=== PATIENT | male | born 1990 | race American Indian/Alaskan Native ===

== ENCOUNTER 2022-01-23 14:08 | Emergency (ER) | payer SELFPAY ==
[2022-01-23] MEDS ORDERED: dexAMETHasone 4 MG/ML VIAL IM ONE (14:41)
[2022-01-23] MEDS ORDERED: ACETAMINOPHEN 500 MG TAB PO ONE (14:41)
--- NOTE | 2022-01-23 14:41 | Emergency Department Report ---
ED Headache HPI - General Stated Complaint: PAIN ON SIDE OF FACE Time Seen by Provider: 01/23/22 14:37 Source: patient Exam Limitations: no limitations - History of Present Illness Timing/Duration: other (3d) Head Injury Location: frontal Recent Head Trauma: no recent headache/trauma Modifying Factors: worse with: cold therapy, exposure to light, immobilization, medication, movement, rest, other Associated Symptoms: denies symptoms, nasal congestion, nasal drainage, sinus infection. denies: confusion, fatigue, facial pain, fever/chills, flushing, loss of consciousness, nausea/vomiting, numbness in legs/feet, rash, seizures, stiff neck, vision changes, weakness Allergies/Adverse Reactions: Allergies No Known Allergies Allergy (Verified 01/23/22 14:38) Home Medications: Ambulatory Orders Amoxicillin [Trimox CAP] 500 mg PO BID #20 capsule 01/23/22 Cetirizine HCl [ZyrTEC] 10 mg PO DAILY #30 capsule 01/23/22 Fluticasone [Flonase] 1 spray NS QDAY #1 bottle 01/23/22 predniSONE [Deltasone] 20 mg PO DAILY #5 tablet 01/23/22 ED Review of Systems ROS: Stated complaint: PAIN ON SIDE OF FACE Other details as noted in HPI Comment: All other systems reviewed and negative ED Past Medical Hx - Past Medical History Previous Medical History?: No - Surgical History Past Surgical History?: No - Family History Family history: no significant - Social History Smoking Status: Never Smoker Substance Use Type: None - Medications Home Medications: Home Medications Medication Instructions Recorded Confirmed Last Taken Type Amoxicillin [Trimox CAP] 500 mg PO BID #20 capsule 01/23/22 Unknown Rx Cetirizine HCl [ZyrTEC] 10 mg PO DAILY #30 capsule 01/23/22 Unknown Rx Fluticasone [Flonase] 1 spray NS QDAY #1 bottle 01/23/22 Unknown Rx predniSONE [Deltasone] 20 mg PO DAILY #5 tablet 01/23/22 Unknown Rx ED Physical Exam - General Limitations: No Limitations General appearance: alert, in no apparent distress - Head Head exam: Present: atraumatic, normocephalic - Eye Eye exam: Present: normal appearance - ENT ENT exam: Present: mucous membranes moist - Expanded ENT Exam Expanded Ear exam: Present: normal external inspection Mouth exam: Present: normal external inspection Teeth exam: Present: normal inspection Throat exam: Positive: normal inspection, other (pain over b max/frontal sinus) - Neck Neck exam: Present: normal inspection - Respiratory Respiratory exam: Present: normal lung sounds bilaterally. Absent: respiratory distress - Cardiovascular Cardiovascular Exam: Present: regular rate, normal rhythm. Absent: systolic murmur, diastolic murmur, rubs, gallop - GI/Abdominal GI/Abdominal exam: Present: soft, normal bowel sounds - Rectal Rectal exam: Present: deferred - Extremities Exam Extremities exam: Present: normal inspection - Back Exam Back exam: Present: normal inspection - Neurological Exam Neurological exam: Present: alert, oriented X3 - Psychiatric Psychiatric exam: Present: normal affect, normal mood - Skin Skin exam: Present: warm, dry, intact, normal color. Absent: rash ED Medical Decision Making - Medical Decision Making Vital Signs 01/23/22 14:36 Temperature 99.7 F H Pulse Rate 50 L Respiratory 14 Rate Blood Pressure 128/71 O2 Sat by Pulse 99 Oximetry - Differential Diagnosis uri Critical care attestation.: If time is entered above; I have spent that time in minutes in the direct care of this critically ill patient, excluding procedure time. ED Disposition Clinical Impression: Sinusitis Disposition: 01 HOME / SELF CARE / HOMELESS Is pt being admited?: No Does the pt Need Aspirin: No Condition: Stable Instructions: Sinusitis, Adult, [id number] Additional Instructions: meds as ordered today follow up with pcp next week referral below Referrals: LILA RICHARDSON MD [Staff Physician] - 3-5 Days Time of Disposition: 14:40
[2022-01-23 14:57] VITALS: BP 107/70
== END 2022-01-23 15:06 | disposition home or self-care (01) ==
LOC: ED 14:08
DX: J32.9 Chronic sinusitis, unspecified (principal); Z79.899 Other long term (current) drug therapy
CPT/HCPCS: 96372; 99282; J1100